=== PATIENT | male | born 1955 | race Caucasian/White ===

== ENCOUNTER 2018-10-07 06:40 | Inpatient (IN) | payer OTHER ==
[~2018-10-07 06:40] MED LIST: cefOXitin SODIUM 2 GM in NS 100 ML IV ONE
[2018-10-07] MEDS ORDERED: LR 1,000 ML IV ONE (06:49)
--- NOTE | 2018-10-07 07:04 | PDHPUP ---
History & Physical Update H&P update statement: This history and physical update is based on an assessment of the patient which was completed after admission or registration (within 24 hours), but prior to the surgery/procedure. H&P update: H&P reviewed & patient examined, no change in patient's condition since H&P completed
[2018-10-07] MEDS ORDERED: HEPARIN 1000 UNIT/1 ML MDV ONE (07:42)
[2018-10-07] MEDS ORDERED: BUPIVACAINE 0.5% 30 ML SDV ONE (07:42)
[2018-10-07] MEDS ORDERED: ceFAZolin 1 GM/5 ML SYR ONE (07:43)
[2018-10-07] MEDS ORDERED: oxyCODONE IR 5 MG TAB PO PRN (07:58)
[2018-10-07] MEDS ORDERED: NALOXONE HCL 0.4 MG/ML INJ IVP PRN (07:58)
[2018-10-07] MEDS ORDERED: HYDROmorphONE/DILAUDID 2 MG/ML INJ IVP PRN (07:58)
[2018-10-07] MEDS ORDERED: fentaNYL 100 MCG/2 ML INJ IVP PRN (07:58)
[2018-10-07] MEDS ORDERED: MIDAZOLAM 2 MG/2 ML VIAL IVP ONE (07:58)
[2018-10-07] MEDS ORDERED: ONDANSETRON 4 MG/2 ML VIAL IVP PRN ×2 (07:58→10:37)
[2018-10-07] MEDS ORDERED: ACETAMINOPHEN 500 MG TAB PO PRN (07:58)
[2018-10-07] MEDS ORDERED: ALBUTEROL 3 ML DEYVIAL IH PRN (07:58)
[2018-10-07] MEDS ORDERED: DEXAMETHASONE 4 MG/ML VIAL IVP PRN (07:58)
--- NOTE | 2018-10-07 08:00 | PDANEPAE ---
ANE History of Present Illness Lap Partial Colectomy ANE Past Medical History - Cardiovascular History Hx Hypertension: No Hx Arrhythmias: No Hx Chest Pain: No Hx Coronary Artery / Peripheral Vascular Disease: No Hx CHF / Valvular Disease: No Hx Palpitations: No - Pulmonary History Hx COPD: No Hx Asthma/Reactive Airway Disease: Yes Hx Recent Upper Respiratory Infection: No Hx Oxygen in Use at Home: No Hx Sleep Apnea: No Sleep Apnea Screening Result - Last Documented: Negative Pulmonary History Comment: hx of daja 10 yrs ago, sinus surgery since, no devices - Neurologic History Hx Cerebrovascular Accident: No Hx Seizures: No Hx Dementia: No - Endocrine History Hx Diabetes: No - Renal History Hx Renal Disorders: No - Liver History Hx Hepatic Disorders: No - Neurological & Psychiatric Hx Hx Neurological and Psychiatric Disorders: Yes Neurological / Psychiatric History Comment: hx of anxiety. 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 dental surgery. right achilles tendon repair 1998 ANE Review of Systems Review of Systems: - Exercise capacity METS (RN): 4 METS ANE Patient History - Allergies Allergies/Adverse Reactions: No Known Allergies Allergy (Verified 10/06/18 15:59) - Home Medications Home Medications: Fluticasone Nasal [Flonase Nasal [place] (RX)] 1 sprays NASAL DAILY 03/20/12 [ Last Taken 10/07/18] Mometasone Furoate [Asmanex] 1 puffs IH DAILY 03/20/12 [Last Taken 10/07/18] Albuterol [Proventil Inhaler HFA (*)] 1 - 2 puffs IH Q4H PRN 10/02/18 [Last Taken 3 Days Ago ~10/04/18] Oxymetazoline HCl [Afrin Nasal [place] (OTC)] 1 spray EACHNARE BID PRN 10/02/18 [ Last Taken 10/07/18] guaiFENesin [Mucinex 600 MG (*)] 600 mg PO BID PRN 10/02/18 [Last Taken 3 Days Ago ~10/04/18] - NPO status NPO Since - Liquids (Date): 10/06/18 NPO Since - Liquids (Time): 22:15 NPO Since - Solids (Date): 10/06/18 NPO Since - Solids (Time): 08:30 - Smoking Hx Smoking Status: Never smoked - Family Anes Hx Family Hx Anesthesia Complications: none ANE Labs/Vital Signs - Vital Signs Blood Pressure: 137/88 Heart Rate: 72 Respiratory Rate: 16 O2 Sat (%): 94 Height: 190.5 cm Weight: 115.666 kg ANE Physical Exam - Airway Neck exam: FROM Mallampati Score: Class 2 Mouth exam: normal dental/mouth exam - Pulmonary Pulmonary: clear to auscultation - Cardiovascular Cardiovascular: regular rate and rhythym - ASA Status ASA Status: II ANE Anesthesia Plan Anesthesia Plan: general endotracheal anesthesia
[2018-10-07] MEDS ORDERED: ROCURONIUM 100 MG/10 ML VIAL ONE (08:01)
[2018-10-07] MEDS ORDERED: HYDROmorphONE/DILAUDID 2 MG/ML INJ ONE (08:01)
[2018-10-07] MEDS ORDERED: PROPOFOL 200 MG/20 ML VIAL ONE (08:01)
[2018-10-07] MEDS ORDERED: LIDOCAINE 2% 5 ML SDV ONE (08:02)
[2018-10-07] MEDS ORDERED: RANITIDINE 50 MG/2 ML VIAL ONE (08:17)
[2018-10-07] MEDS ORDERED: DEXAMETHASONE 4 MG/ML VIAL ONE ×2 (08:17)
[2018-10-07] MEDS ORDERED: ONDANSETRON 4 MG/2 ML VIAL ONE (08:17)
[2018-10-07] MEDS ORDERED: SUGAMMADEX SODIUM 200 MG/2 ML VIAL IVP ONE (10:17)
--- NOTE | 2018-10-07 10:33 | POSTANESTH ---
Post Anesthetic Evaluation Cardiovascular Status: Normal, Stable Respiratory Status: Normal, Stable Level of Consciousness/Mental Status: Can Participate in Eval, Alert and Oriented Pain Control: Adequate, Prn Tx Ordered Nausea/Vomiting Control: Adequate, Prn Tx Ordered Complications Possibly Related to Anesthesia: None Noted
--- NOTE | 2018-10-07 10:36 | POSTOPPROG ---
Post Op Note Date of Operation: 10/07/18 Surgeon: Cristian Monsivais Chronometer Adjuster: Wendy Duval Anesthesiologist: Tae See Anesthesia: GET(General Endotracheal) Pre-op Diagnosis: transverse colon polyp c dysplasia Post-op Diagnosis: same, pathology pending Procedure: lap assisted transverse colectomy Findings: polypectomy scar in specimen and tatooed Inf/Abcess present in the surg proc area at time of surgery?: No Depth: Superfical (Skin SQ) EBL: 50-100 Complications: none Specimen(s): transverse colon to pathology, stitch gramajo scar
[2018-10-07] MEDS ORDERED: HYDROmorphONE/DILAUDID 1 MG/ML INJ IVP PRN (10:37)
[2018-10-07] MEDS ORDERED: ALBUTEROL 60 PUFFS/8 GM MDI IH PRN (10:38)
[2018-10-07] MEDS ORDERED: NS 1,000 ML IV SCH (10:45)
--- NOTE | 2018-10-07 12:08 | PDMN ---
Medical Necessity Medical necessity: Pt meets inpt criteria per MD ordr and [id number], Bowel Surgery: Colectomy, Partial, with or without Ostomy, by Laparoscopy, [facility] IP only list, 3 days. 63 y/o w/transverse colon polyp w/dysplasia admitted for lap assisted transverse colectomy and post-op care.
--- NOTE | 2018-10-07 17:11 | SOAPPROG ---
SOAP Progress Note Assessment/Plan: Assessment/Plan: 63 Y M s/p lap assisted transverse colectomy, POD#0. Doing well. Pain controlled. Wounds intact. AFVSS. Clear in am. Soto out in am. Continue care. 10/07/18 17:10 Objective: Vital Signs Temp Pulse Resp BP Pulse Ox 37.1 C 78 16 124/78 H 94 10/07/18 15:58 10/07/18 15:58 10/07/18 15:58 10/07/18 15:58 10/07/18 15:58 10/06/18 10/07/18 10/08/18 05:59 05:59 05:59 Intake Total 1500 Output Total 100 Balance 1400 ICD10 Worksheet Patient Problems: Problems Problem Status Onset Mass of colon Acute - ICD10 Problem Qualifiers (1) Mass of colon
[2018-10-07] MEDS: DOCUSATE SODIUM 100 MG CAP PO SCH (20:26)
[2018-10-07] MEDS: guaiFENesin 600 MG TAB.ER PO PRN (20:26)
[2018-10-07] MEDS: OXYMETAZOLINE 30 ML NASAL SPRAY EACHNARE PRN (22:51)
[2018-10-08] MEDS: OXYCODONE/APAP 5/325 TAB PO PRN ×3 (01:56→21:24)
[2018-10-08] MEDS: MOMETASONE 220MCG INHALER IH SCH (08:39)
[2018-10-08] MEDS: DOCUSATE SODIUM 100 MG CAP PO SCH ×2 (08:40→21:24)
[2018-10-08] MEDS: FLUTICASONE NASAL 120 SPRAYS/16 GM MDI EACHNARE SCH (08:43)
[2018-10-08] MEDS: OXYMETAZOLINE 30 ML NASAL SPRAY EACHNARE PRN (08:44)
[2018-10-08] MEDS ORDERED: ACETAMINOPHEN 650 MG/20.3 ML UDCUP PO PRN (08:55)
--- NOTE | 2018-10-08 10:14 | SOAPPROG ---
SOAP Progress Note Assessment/Plan: Assessment: 63 y/o M s/p Lap assisted transverse colectomy POD#1 S: Doing well overall. Tolerating clears and passing flatus. Pain controlled with Percocet. O: Alert Afebrile VSS RRR No increased WOB Abdomen soft, appropriately ttp, incision sites well dressed, +BS Plan: Continue clears, possibly advance diet to light later today. Likely d/c tomorrow. 10/08/18 10:10 Objective: Vital Signs Temp Pulse Resp BP Pulse Ox 37.1 C 68 16 121/82 H 98 10/08/18 08:00 10/08/18 08:00 10/08/18 08:00 10/08/18 08:00 10/08/18 08:00 Laboratory Results 10/08/18 04:54 10/08/18 04:54 10/07/18 10/08/18 10/09/18 05:59 05:59 05:59 Intake Total 3150 Output Total 1200 Balance 1950 ICD10 Worksheet Patient Problems: Problems Problem Status Onset Mass of colon Acute
[2018-10-08] MEDS ORDERED: KETOROLAC 15 MG/1 ML SDV IVP SCH (12:00)
--- NOTE | 2018-10-08 17:51 | ASMTCMCOM ---
CM Note CM Note Notes: Pt admitted for a scheduled surgery on a adenoma. 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 Anticipate he will dc home when medically stable, no therapies ordered. DC Plan: Independent Date Signed: 10/08/2018 05:51 PM Electronically Signed By:Lizzie Melgar RN
[2018-10-08] MEDS: guaiFENesin 600 MG TAB.ER PO PRN (18:40)
[2018-10-09] MEDS: OXYCODONE/APAP 5/325 TAB PO PRN (01:13)
[2018-10-09] MEDS: OXYMETAZOLINE 30 ML NASAL SPRAY EACHNARE PRN (01:13)
[2018-10-09] MEDS: FLUTICASONE NASAL 120 SPRAYS/16 GM MDI EACHNARE SCH (08:04)
[2018-10-09] MEDS: MOMETASONE 220MCG INHALER IH SCH (08:05)
[2018-10-09] MEDS: DOCUSATE SODIUM 100 MG CAP PO SCH ×2 (08:06→21:07)
[2018-10-09] MEDS: ENOXAPARIN 40 MG/0.4 ML SYR SC SCH (08:07)
--- NOTE | 2018-10-09 10:23 | GOP ---
[f rep st] OPERATIVE REPORT DATE OF OPERATION: 10/07/2018 SURGEON: Cristian Monsivais MD SINGLE END SEWER: Wendy Duval PA-C. ANESTHESIOLOGIST: Dr. See. PREOPERATIVE DIAGNOSIS: Dysplastic transverse colon polyp. POSTOPERATIVE DIAGNOSIS: Dysplastic transverse colon polyp. PROCEDURE PERFORMED: Laparoscopic transverse colectomy. FINDINGS: Patient was found to have a scar area where the polypectomy site for the proximal transver se colon polyp was removed. This was marked with ink. It was difficult to find because of very thic k omental tissue covering the colon, but no other areas of ink were encountered and pathology confirm ed the presence of the polypectomy scar. SPECIMENS: Final pathology is pending. ESTIMATED BLOOD LOSS: Blood loss was less than 100 cc. DESCRIPTION OF PROCEDURE: The patient was taken to the operating room where he received a satisfacto ry general endotracheal anesthesia by Dr. See, placed in the supine position, prepped and draped in usual sterile fashion. A periumbilical incision was made. A Veress needle inserted. Pneumoperiton eum was established. Trocar was introduced. Laparoscope introduced. Good visualization was obtaine d. Three other trocars were placed in the abdomen under direct vision. The colon was mobilized. Di fficult search was made to identify where the ink alonzo was. This required taking down some of the om entum off the colon until the ink area could be readily exposed and identified. At that point, the right colon was mobilized by dividing the lateral peritoneal reflection and around the hepatic flexure to help mobilize the colon. The left portion of the transverse colon was also s omewhat mobilized. At that point, a transverse incision was made in the right upper quadrant. Disse ction carried down. The rectus sheath was incised. The rectus muscles were retracted laterally. Th e posterior sheath was incised, and the colon was then delivered up through this incision. It was di vided proximally and distally from the polypectomy site after partial division of the mesentery with the Harmonic scalpel and the omentum. This was done with a ARMAND-75. The specimen was removed and sen t to Pathology with the above-noted findings. End-to-end anastomosis was then done using 3-0 silk in terrupted sutures for the anterior and posterior layers and a running inner layer of 3-0 Vicryl creat ing a good 3-fingerbreadth anastomosis in the proximal right transverse colon. Hemostasis was assure d. The wound was irrigated. A wound protector had been used. At this point, we switched to a clean closure set and the incision was closed using a running 0 Vicry l suture for the posterior sheath, a running #1 PDS suture for the anterior sheath, 3-0 Vicryl for th e subcu, and 4-0 Monocryl subcuticular stitch for the skin. All layers infiltrated with 0.5% Marcain e. Blood loss negligible. No complications. Taken to the recovery room in good condition. The wou nd was infiltrated with 0.5% Marcaine. /[id number]/MODL
[2018-10-09] MEDS: guaiFENesin 600 MG TAB.ER PO PRN (10:32)
--- NOTE | 2018-10-09 11:25 | SOAPPROG ---
SOAP Progress Note Assessment/Plan: Assessment: 63 y/o M s/p Lap assisted transverse colectomy POD#2 S: Much improved from yesterday. Tolerating clears and passing flatus. Pain controlled with Percocet. O: Alert Low grade temp of 37.5, back down now VSS RRR No increased WOB Abdomen soft, appropriately ttp, incision sites well dressed, +BS Plan: Advance to light diet. Likely home later today. 10/09/18 11:24 Objective: Vital Signs Temp Pulse Resp BP Pulse Ox 37.3 C 79 18 130/82 H 91 L 10/09/18 07:31 10/09/18 07:31 10/09/18 07:31 10/09/18 07:31 10/09/18 07:31 Laboratory Results 10/08/18 04:54 10/08/18 04:54 10/08/18 10/09/18 10/10/18 05:59 05:59 05:59 Intake Total 3150 120 Output Total 1200 Balance 1950 120 ICD10 Worksheet Patient Problems: Problems Problem Status Onset Mass of colon Acute
[2018-10-10 05:36] LABS: PLATELET COUNT 173 10^3/uL (150-400)
[2018-10-10 07:55] VITALS: BP 113/81
[2018-10-10] MEDS: ENOXAPARIN 40 MG/0.4 ML SYR SC SCH (08:02)
[2018-10-10] MEDS: FLUTICASONE NASAL 120 SPRAYS/16 GM MDI EACHNARE SCH (08:03)
[2018-10-10] MEDS: MOMETASONE 220MCG INHALER IH SCH (08:04)
[2018-10-10] MEDS: DOCUSATE SODIUM 100 MG CAP PO SCH (08:05)
== END 2018-10-10 11:54 | disposition home or self-care (01) | DRG 395 ==
LOC: F3E 06:40
PROVIDERS: ADMIT Surgery; ATTEND Surgery
PROC: 0DBL4ZX Excision of Transverse Colon, Percutaneous Endoscopic Approach, Diagnostic (ICD-10-PCS; principal; 2018-10-10)
DX: D12.3 Benign neoplasm of transverse colon (principal); D12.2 Benign neoplasm of ascending colon; J45.909 Unspecified asthma, uncomplicated; E78.5 Hyperlipidemia, unspecified; G47.33 Obstructive sleep apnea (adult) (pediatric); Z85.828 Personal history of other malignant neoplasm of skin
CPT/HCPCS: J0694; J1100; J1170; J1650; J2250; J2405; J2704; J2780